=== PATIENT | male | born 1960 | race Caucasian/White ===

== ENCOUNTER 2019-09-12 13:25 | Outpatient (REF) | payer MEDICARE, MEDICAID, SELFPAY ==
[2019-09-12 21:38] LABS: Abs Immature Grans 0.01 k/cumm (0.0-0.09); Absolute Basophil Count 0.07 k/cumm (0.0-0.2); Absolute Eosinophil Count 0.04 k/cumm (0.0-0.7); Absolute Lymphocyte Count 1.24 k/cumm (1.2-3.4); Absolute Monocyte Count 0.41 k/cumm (0.11-0.7); Absolute Neutrophil Count 2.81 k/cumm (1.2-6.7); Basophils % 1.5; Eosinophils % 0.9; HCT 45.6 % (40.0-50.0); HGB 15.1 g/dL (13.5-17.5); Immature Grans % 0.2 %; Lymphocytes % 27.1; Mean Corp. HGB Concentration 33.1 g/dL (32.0-36.0); Mean Corpuscular Hemoglobin 32.3 pg (27.0-33.0); Mean Corpuscular Volume 97.6 fL (80-95); Mean Platelet Volume 9.6 fL (8.0-11.0); Neutrophils % 61.3; Platelet Count 343 x1000/uL (130-400); RBC 4.67 m/cumm (4.50-6.00); RBC Distribution Width 13.8 % (11.8-14.1); White Blood Cell Count 4.58 k/cumm (4.4-10.8)
[2019-09-12 22:03] LABS: ALT 57 U/L (16-63); AST 32 U/L (15-37); Albumin 4.3 g/dL (3.4-5.0); Alkaline Phosphatase 75 U/L (46-116); Anion Gap 7.8 mmol/L (3-11); BUN 23 mg/dL (7-18); Bilirubin, Total 0.4 mg/dL (0.2-1.0); CO2 32.2 mmol/L (21.0-32.0); CREATININE 0.97 mg/dL (0.70-1.30); Calcium 8.9 mg/dL (8.5-10.1); Calculated LDL 126 mg/dL (<100); Chloride 103 mmol/L (98-107); Cholesterol 207 mg/dL (<200); Glucose 84 mg/dL (74-106); HDL Cholesterol 41 mg/dL (40-60); Potassium 4.3 mmol/L (3.5-5.1); Sodium 143 mmol/L (136-145); TSH 2.01 uIU/mL (0.36-3.74); Total Protein 7.5 g/dL (6.4-8.2); Triglyceride 204 mg/dL (<150)
[2019-09-13 18:07] LABS: Vitamin B12 1124 pg/mL (193-986)
[2019-09-15 13:40] LABS: Folate >24.0 ng/mL (See Note)
== END 2019-09-12 13:45 ==
LOC: NCHCN 13:25
PROVIDERS: PCP Family Medicine; Visit Provider Family Medicine
DX: E78.5 Hyperlipidemia, unspecified (principal); E03.9 Hypothyroidism, unspecified; D70.4 Cyclic neutropenia
CPT/HCPCS: 80053; 80061; 82607; 82746; 84443; 85025

== ENCOUNTER 2021-01-22 09:53 | Outpatient (REF) | payer MEDICARE, MEDICAID, SELFPAY ==
[2021-01-22 13:57] LABS: Abs Immature Grans 0.04 10^3/uL (0.0-0.06); Absolute Basophil Count 0.04 10^3/uL (0.0-0.2); Absolute Eosinophil Count 0.02 10^3/uL (0.0-0.7); Absolute Lymphocyte Count 1.19 10^3/uL (1.2-3.4); Absolute Monocyte Count 0.33 10^3/uL (0.1-0.8); Absolute Neutrophil Count 2.14 10^3/uL (1.2-6.7); Basophils % 1.1; Eosinophils % 0.5; HGB 15.5 g/dL (13.5-17.5); Immature Grans % 1.1; Lymphocytes % 31.6; MCV 97.1 fL (80-95); MPV 9.2 fL (8.0-11.0); Monocytes % 8.8; Neutrophils % 56.9; Nucleated RBC 0 %; Platelet Count 294 10^3/uL (130-400); RBC 4.84 10^6/uL (4.36-5.78); RDW 13.1 % (11.8-14.1); RDW-SD 46.7 fL; WBC 3.76 10^3/uL (4.4-10.8)
[2021-01-22 15:36] LABS: ALT 86 U/L (16-63); AST 44 U/L (15-37); Alkaline Phosphatase 86 U/L (46-116); Anion Gap 10.5 mmol/L (3-11); BUN 23 mg/dL (7-18); Bilirubin, Total 0.3 mg/dL (0.2-1.0); CO2 29.5 mmol/L (21.0-32.0); Calcium 8.9 mg/dL (8.5-10.1); Calculated LDL 141 mg/dL (<100); Chloride 105 mmol/L (98-107); Cholesterol 216 mg/dL (<200); Glucose 102 mg/dL (74-106); HDL Cholesterol 43 mg/dL (40-60); Potassium 4.8 mmol/L (3.5-5.1); Sodium 145 mmol/L (136-145); Total Protein 7.2 g/dL (6.4-8.2); Triglyceride 163 mg/dL (<150)
[2021-01-22 22:44] LABS: PSA, Screening 0.2 ng/mL (0.0-3.5)
[2021-01-23 11:19] LABS: TSH 1.33 uIU/mL (0.36-3.74)
== END 2021-01-22 09:54 | disposition home or self-care (01) ==
LOC: NCHCN 09:53
PROVIDERS: PCP Family Medicine; Visit Provider Family Medicine
DX: E03.9 Hypothyroidism, unspecified (principal); D70.9 Neutropenia, unspecified; E78.5 Hyperlipidemia, unspecified; R39.11 Hesitancy of micturition; Z12.5 Encounter for screening for malignant neoplasm of prostate
CPT/HCPCS: 80053; 80061; 84153; 84443; 85025

== ENCOUNTER 2021-07-25 09:35 | Outpatient (REF) | payer MEDICARE, MEDICAID, SELFPAY ==
[2021-07-25 14:53] LABS: Abs Immature Grans 0.03 10^3/uL (0.0-0.06); Absolute Basophil Count 0.04 10^3/uL (0.0-0.2); Absolute Eosinophil Count 0.02 10^3/uL (0.0-0.7); Absolute Lymphocyte Count 0.95 10^3/uL (1.2-3.4); Absolute Monocyte Count 0.43 10^3/uL (0.1-0.8); Absolute Neutrophil Count 2.33 10^3/uL (1.2-6.7); Basophils % 1.1; Eosinophils % 0.5; HCT 46.2 % (40.0-50.0); HGB 15.3 g/dL (13.5-17.5); Immature Grans % 0.8; MCH 31.7 pg (27.0-33.0); MCHC 33.1 % (32.0-36.0); MCV 95.7 fL (80-95); MPV 9.2 fL (8.0-11.0); Monocytes % 11.3; Neutrophils % 61.3; Nucleated RBC 0 %; Platelet Count 302 10^3/uL (130-400); RBC 4.83 10^6/uL (4.36-5.78); RDW 13.2 % (11.8-14.1); RDW-SD 47.3 fL
[2021-07-25 15:18] LABS: ALT 92 U/L (16-63); AST 44 U/L (15-37); Albumin 3.8 g/dL (3.4-5.0); Alkaline Phosphatase 81 U/L (46-116); Anion Gap 7.1 mmol/L (3-11); BUN 20 mg/dL (7-18); Bilirubin, Total 0.3 mg/dL (0.2-1.0); CO2 29.9 mmol/L (21.0-32.0); CREATININE 0.9 mg/dL (0.70-1.30); Calcium 8.5 mg/dL (8.5-10.1); Chloride 105 mmol/L (98-107); Glucose 108 mg/dL (74-106); Potassium 4.6 mmol/L (3.5-5.1); Sodium 142 mmol/L (136-145)
== END 2021-07-25 09:36 | disposition home or self-care (01) ==
LOC: NCHCN 09:35
PROVIDERS: PCP Family Medicine; Visit Provider Family Medicine
DX: D70.4 Cyclic neutropenia (principal); R74.8 Abnormal levels of other serum enzymes
CPT/HCPCS: 80053; 85025

== ENCOUNTER 2022-01-21 15:48 | Outpatient (REF) | payer MEDICARE, MEDICAID, SELFPAY ==
[2022-01-21 21:17] LABS: Abs Immature Grans 0.03 10^3/uL (0.0-0.06); Absolute Basophil Count 0.06 10^3/uL (0.0-0.2); Absolute Eosinophil Count 0.02 10^3/uL (0.0-0.7); Absolute Lymphocyte Count 1.17 10^3/uL (1.2-3.4); Basophils % 1.3; Eosinophils % 0.4; HCT 43.8 % (40.0-50.0); HGB 14.8 g/dL (13.5-17.5); Immature Grans % 0.7; Lymphocytes % 25.5; MCH 32.5 pg (27.0-33.0); MCHC 33.8 % (32.0-36.0); MCV 96 fL (80-95); MPV 9.1 fL (8.0-11.0); Monocytes % 8.7; Neutrophils % 63.4; Platelet Count 292 10^3/uL (130-400); RBC 4.56 10^6/uL (4.36-5.78); RDW 13.2 % (11.8-14.1); RDW-SD 46.7 fL; WBC 4.58 10^3/uL (4.4-10.8)
[2022-01-21 21:48] LABS: ALT 56 U/L (16-63); AST 32 U/L (15-37); Albumin 4.1 g/dL (3.4-5.0); Alkaline Phosphatase 77 U/L (46-116); Anion Gap 8.5 mmol/L (3-11); BUN 24 mg/dL (7-18); Bilirubin, Total 0.5 mg/dL (0.2-1.0); CO2 30.5 mmol/L (21.0-32.0); Calcium 8.7 mg/dL (8.5-10.1); Calculated LDL 119 mg/dL (<100); Chloride 102 mmol/L (98-107); Cholesterol 203 mg/dL (<200); Glucose 93 mg/dL (74-106); HDL Cholesterol 47 mg/dL (40-60); Potassium 4.2 mmol/L (3.5-5.1); Sodium 141 mmol/L (136-145); TSH 1.35 uIU/mL (0.36-3.74); Total Protein 7.3 g/dL (6.4-8.2); Triglyceride 186 mg/dL (<150)
== END 2022-01-21 15:49 | disposition home or self-care (01) ==
LOC: NCHCN 15:48
PROVIDERS: PCP Family Medicine; Visit Provider Family Medicine
DX: E78.5 Hyperlipidemia, unspecified (principal); E03.9 Hypothyroidism, unspecified; K76.0 Fatty (change of) liver, not elsewhere classified; D70.4 Cyclic neutropenia
CPT/HCPCS: 80053; 80061; 84443; 85025

== ENCOUNTER 2023-01-20 21:55 | Outpatient (REF) | payer MEDICARE, MEDICAID, SELFPAY ==
[2023-01-20 20:44] LABS: Abs Immature Grans 0.03 10^3/uL (0.0-0.06); Absolute Basophil Count 0.06 10^3/uL (0.0-0.2); Absolute Eosinophil Count 0.02 10^3/uL (0.0-0.7); Absolute Lymphocyte Count 1.14 10^3/uL (1.2-3.4); Absolute Monocyte Count 0.37 10^3/uL (0.1-0.8); Absolute Neutrophil Count 2.84 10^3/uL (1.2-6.7); Basophils % 1.3; Eosinophils % 0.4; HCT 44.1 % (40.0-50.0); HGB 14.6 g/dL (13.5-17.5); Immature Grans % 0.7; Lymphocytes % 25.6; MCH 31.6 pg (27.0-33.0); MCHC 33.1 % (32.0-36.0); MCV 96 fL (80-95); MPV 9.4 fL (8.0-11.0); Monocytes % 8.3; Neutrophils % 63.7; Platelet Count 335 10^3/uL (130-400); RBC 4.62 10^6/uL (4.36-5.78); RDW 13.6 % (11.8-14.1); RDW-SD 48.2 fL; WBC 4.46 10^3/uL (4.4-10.8)
[2023-01-20 21:15] LABS: ALT 56 U/L (16-63); AST 37 U/L (15-37); Albumin 3.8 g/dL (3.4-5.0); Alkaline Phosphatase 89 U/L (46-116); BUN 22 mg/dL (7-18); Bilirubin, Total 0.3 mg/dL (0.2-1.0); Calculated LDL 121 mg/dL (<100); Chloride 102 mmol/L (98-107); Cholesterol 218 mg/dL (<200); Estimated GFR 86.16 (mL/min/1.73m2); Glucose 96 mg/dL (74-106); HDL Cholesterol 48 mg/dL (40-60); Potassium 4.4 mmol/L (3.5-5.1); Sodium 141 mmol/L (136-145); TSH 3.19 uIU/mL (0.36-3.74); Total Protein 7.7 g/dL (6.4-8.2); Triglyceride 246 mg/dL (<150)
== END 2023-01-20 21:56 | disposition home or self-care (01) ==
LOC: NCHCN 21:55
PROVIDERS: PCP Family Medicine; Visit Provider Family Medicine
DX: E78.5 Hyperlipidemia, unspecified (principal); R74.01 Elevation of levels of liver transaminase levels; E66.8 Other obesity; Q90.9 Down syndrome, unspecified
CPT/HCPCS: 80053; 80061; 84443; 85025

== ENCOUNTER 2023-08-26 13:26 | Outpatient (REF) | payer MEDICARE, MEDICAID, SELFPAY ==
[2023-08-26 14:28] LABS: Abs Immature Grans 0.04 10^3/uL (0.0-0.06); Absolute Basophil Count 0.05 10^3/uL (0.0-0.2); Absolute Eosinophil Count 0.02 10^3/uL (0.0-0.7); Absolute Lymphocyte Count 0.87 10^3/uL (1.2-3.4); Absolute Monocyte Count 0.36 10^3/uL (0.1-0.8); Absolute Neutrophil Count 2.18 10^3/uL (1.2-6.7); Basophils % 1.4; Eosinophils % 0.6; HGB 15.8 g/dL (13.5-17.5); Immature Grans % 1.1; Lymphocytes % 24.7; MCH 31.5 pg (27.0-33.0); MCHC 33.6 % (32.0-36.0); MCV 94 fL (80-95); MPV 8.8 fL (8.0-11.0); Monocytes % 10.2; Platelet Count 328 10^3/uL (130-400); RBC 5.01 10^6/uL (4.36-5.78); RDW 13.5 % (11.8-14.1); WBC 3.52 10^3/uL (4.4-10.8)
[2023-08-26 16:58] LABS: ALT 73 U/L (16-63); AST 40 U/L (15-37); Albumin 4.1 g/dL (3.4-5.0); Alkaline Phosphatase 88 U/L (46-116); Anion Gap 6.9 mmol/L (3-11); BUN 26 mg/dL (7-18); Bilirubin, Total 0.3 mg/dL (0.2-1.0); CO2 30.1 mmol/L (21.0-32.0); CREATININE 0.9 mg/dL (0.70-1.30); Calcium 9.4 mg/dL (8.5-10.1); Calculated LDL 155 mg/dL (<100); Chloride 102 mmol/L (98-107); Cholesterol 260 mg/dL (<200); Estimated GFR 97.17 (mL/min/1.73m2); Glucose 94 mg/dL (74-106); HDL Cholesterol 48 mg/dL (40-60); Potassium 4.4 mmol/L (3.5-5.1); Sodium 139 mmol/L (136-145); TSH (W/Ref FT4) 2.76 uIU/mL (0.36-3.74); Total Protein 7.8 g/dL (6.4-8.2); Triglyceride 288 mg/dL (<150)
[2023-08-26 23:11] LABS: PSA, Screening <0.1 ng/mL (<=4.5)
== END 2023-08-26 13:27 | disposition home or self-care (01) ==
LOC: NCHCN 13:26
PROVIDERS: PCP Family Medicine; Visit Provider Family Medicine
DX: E66.8 Other obesity (principal); E78.5 Hyperlipidemia, unspecified; Z12.5 Encounter for screening for malignant neoplasm of prostate; Z00.00 Encounter for general adult medical examination without abnormal findings; E03.9 Hypothyroidism, unspecified; D70.4 Cyclic neutropenia
CPT/HCPCS: 80053; 80061; 84153; 84443; 85025

== ENCOUNTER 2024-02-24 14:17 | Outpatient (REF) | payer MEDICARE, MEDICAID, SELFPAY ==
[2024-02-24 16:07] LABS: Abs Immature Grans 0.04 10^3/uL (0.0-0.06); Absolute Basophil Count 0.06 10^3/uL (0.0-0.2); Absolute Eosinophil Count 0.04 10^3/uL (0.0-0.7); Absolute Lymphocyte Count 1.38 10^3/uL (1.2-3.4); Absolute Monocyte Count 0.52 10^3/uL (0.1-0.8); Absolute Neutrophil Count 3.16 10^3/uL (1.2-6.7); Basophils % 1.2 %; Eosinophils % 0.8 %; HCT 48.3 % (40.0-50.0); HGB 16.2 g/dL (13.5-17.5); Immature Grans % 0.8 %; Lymphocytes % 26.5 %; MCHC 33.5 % (32.0-36.0); MCV 95 fL (80-95); MPV 9.2 fL (8.0-11.0); Neutrophils % 60.7 %; Platelet Count 313 10^3/uL (130-400); RBC 5.07 10^6/uL (4.36-5.78); RDW 13.5 % (11.8-14.1); RDW-SD 47.5 fL
[2024-02-24 16:41] LABS: ALT 58 U/L (16-63); AST 35 U/L (15-37); Albumin 4.3 g/dL (3.4-5.0); Alkaline Phosphatase 81 U/L (46-116); Anion Gap 7.5 mmol/L (3-11); BUN 25 mg/dL (7-18); Bilirubin, Total 0.33 mg/dL (0.2-1.0); CO2 31.5 mmol/L (21.0-32.0); CREATININE 1.1 mg/dL (0.70-1.30); Calcium 9.2 mg/dL (8.5-10.1); Chloride 102 mmol/L (98-107); Estimated GFR 76.37 (mL/min/1.73m2); Glucose 87 mg/dL (74-106); Potassium 4.6 mmol/L (3.5-5.1); Sodium 141 mmol/L (136-145); TSH 3.79 uIU/Ml (0.36-3.74)
== END 2024-02-24 14:18 | disposition home or self-care (01) ==
LOC: NCHCN 14:17
PROVIDERS: PCP Family Medicine; Visit Provider Family Medicine
DX: E03.9 Hypothyroidism, unspecified (principal); D70.4 Cyclic neutropenia; K76.0 Fatty (change of) liver, not elsewhere classified
CPT/HCPCS: 80053; 84443; 85025

== ENCOUNTER 2024-04-27 15:04 | Outpatient (REF) | payer MEDICARE, MEDICAID, SELFPAY | END 2024-04-27 15:05 | disposition home or self-care (01) | LOC: NCHCN 15:04 | PROVIDERS: PCP Family Medicine; Visit Provider Family Medicine | DX: E03.9 Hypothyroidism, unspecified (principal) | CPT/HCPCS: 84443 ==

== ENCOUNTER 2024-10-19 09:00 | Outpatient (REF) | payer MEDICARE, MEDICAID, SELFPAY ==
[2024-10-19 15:55] LABS: HCT 48.1 % (40.0-50.0); HGB 15.7 g/dL (13.5-17.5); MCH 32.2 pg (27.0-33.0); MCHC 32.6 % (32.0-36.0); MCV 99 fL (80-95); Platelet Count 411 10^3/uL (130-400); RBC 4.88 10^6/uL (4.36-5.78); RDW 13.8 % (11.8-14.1); RDW-SD 50.7 fL; WBC 6.73 10^3/uL (4.4-10.8)
[2024-10-19 16:45] LABS: ALT 74 U/L (16-63); AST 46 U/L (15-37); Albumin 3.9 g/dL (3.4-5.0); Alkaline Phosphatase 132 U/L (46-116); Anion Gap 9.1 mmol/L (3-11); BUN 28 mg/dL (7-18); Bilirubin, Total 0.27 mg/dL (0.2-1.0); CO2 31.9 mmol/L (21.0-32.0); CREATININE 1.2 mg/dL (0.70-1.30); Calcium 9.3 mg/dL (8.5-10.1); Calculated LDL 162 mg/dL (<100); Chloride 103 mmol/L (98-107); Cholesterol 254 mg/dL (<200); Estimated GFR 68.38 (mL/min/1.73m2); Glucose 100 mg/dL (74-106); HDL Cholesterol 51 mg/dL (>or=40); Potassium 4.6 mmol/L (3.5-5.1); Sodium 144 mmol/L (136-145); Total Protein 8.1 g/dL (6.4-8.2); Triglyceride 207 mg/dL (<150)
[2024-10-19 22:36] LABS: PSA, Screening 0.1 ng/mL (<=4.5)
== END 2024-10-19 09:01 | disposition home or self-care (01) ==
LOC: NCHCN 09:00
PROVIDERS: PCP Family Medicine; Visit Provider Family Medicine
DX: E78.5 Hyperlipidemia, unspecified (principal); N40.0 Benign prostatic hyperplasia without lower urinary tract symptoms
CPT/HCPCS: 80053; 80061; 84153; 85027

== ENCOUNTER 2025-02-20 08:28 | Outpatient (REF) | payer MEDICARE, MEDICAID, SELFPAY ==
[2025-02-20 14:40] LABS: Abs Immature Grans 0.03 10^3/uL (0.0-0.06); HCT 50.0 % (40.0-50.0); HGB 16.5 g/dL (13.5-17.5); Immature Grans % 0.6 %; MCH 31.6 pg (27.0-33.0); MCHC 33.0 % (32.0-36.0); MCV 96 fL (80-95); MPV 9.4 fL (8.0-11.0); Platelet Count 279 10^3/uL (130-400); RBC 5.22 10^6/uL (4.36-5.78); RDW 13.7 % (11.8-14.1); RDW-SD 48.2 fL; WBC 5.09 10^3/uL (4.4-10.8)
[2025-02-20 15:29] LABS: ALT 62 U/L (16-63); AST 41 U/L (15-37); Albumin 4.2 g/dL (3.4-5.0); Alkaline Phosphatase 79 U/L (46-116); Anion Gap 6.6 mmol/L (3-11); BUN 21 mg/dL (7-18); Bilirubin, Total 0.4 mg/dL (0.2-1.0); CO2 31.4 mmol/L (21.0-32.0); Calcium 9.2 mg/dL (8.5-10.1); Calculated LDL 123 mg/dL (<100); Chloride 103 mmol/L (98-107); Cholesterol 215 mg/dL (<200); Estimated GFR 85.10 (mL/min/1.73m2); Glucose 103 mg/dL (74-106); HDL Cholesterol 52 mg/dL (>or=40); Potassium 4.5 mmol/L (3.5-5.1); Sodium 141 mmol/L (136-145); Total Protein 7.9 g/dL (6.4-8.2); Triglyceride 200 mg/dL (<150)
== END 2025-02-20 08:29 | disposition home or self-care (01) ==
LOC: NCHCN 08:28
PROVIDERS: PCP Family Medicine; Visit Provider Family Medicine
DX: D70.4 Cyclic neutropenia (principal); E78.5 Hyperlipidemia, unspecified; E66.9 Obesity, unspecified
CPT/HCPCS: 80053; 80061; 85027; 85025

== ENCOUNTER 2025-05-10 17:44 | Outpatient (REF) | payer MEDICARE, MEDICAID, SELFPAY ==
[2025-05-10 15:27] LABS: TSH 3.02 uIU/mL (0.36-3.74)
== END 2025-05-10 17:45 | disposition home or self-care (01) ==
LOC: NCHCN 17:44
PROVIDERS: PCP Family Medicine; Visit Provider Family Medicine
DX: E03.9 Hypothyroidism, unspecified (principal)
CPT/HCPCS: 84443